=== PATIENT | female | born 1960 | race Caucasian/White ===

== ENCOUNTER → 2024-07-13 | Outpatient (CLI) | payer MEDICARE, BC ==
[2024-07-13 15:10] VITALS: BP 158/87; PULSE 53; RESP 18; TEMP 97.9
--- NOTE | 2024-07-13 17:36 | P.SLEEP ---
History of Present Illness DATE: 07/13/2024 CONSULTATION/NEW PATIENT EVALUATION HISTORY OF PRESENT ILLNESS/SLEEP-WAKE EVALUATION: 63-year-old lady had been evaluated in the sleep center for possible obstructive sleep apnea hypopnea syndrome. Patient has history of obstructive sleep apnea for 5 years, diagnosed in another institution. Patient needs CPAP supplies. SLEEP SCHEDULE: Usually sleep schedule 10 PM2 AM until 69 AM 7 days a week. FALLING ASLEEP: No problems with falling asleep. DURING SLEEP: No snoring with CPAP. Awakenings from sleep 1 time while using CPAP. No history of hypnogogical hallucinations, sleep paralysis, or cataplexy. DURING THE DAY/WAKE STATE: Sometimes patient may feel some sleepiness during the day. [place] sleepiness scale is 3. Patient does not take naps. PAST MEDICAL HISTORY: Coronary artery disease, heart attack, hypertension, acid reflux. PAST SURGICAL HISTORY: Heart catheterization. MEDICATIONS: Please see below. SOCIAL HISTORY: Please see below. FAMILY HISTORY: Epilepsy, stroke, fibromyalgia, cancer, thyroid problems, diabetes. REVIEW OF SYSTEMS: No fevers. No double vision. No recent chest pain. No shortness of breath. No abdominal pain. No bleeding episodes. No blood in urine. No seizure episodes. PHYSICAL EXAMINATION: GENERAL: A pleasant patient without any distress. VITAL SIGNS: Please see below. HEENT: PERRLA, EOMI. Evaluation of oropharynx showed tongue protrudes midline, low position of soft palate Mallampati 34. NECK: Supple. No JVD. Thyroid is not palpable. 15-3/4 inches in circumference. LUNGS: Clear to percussion and to auscultation. Good air exchange. No wheezing or rhonchi. HEART: S1, S2 regular. No murmurs, gallops or rubs. ABDOMEN: Soft and nontender. Bowel sounds are present. No organomegaly appreciated. Obese EXTREMITIES: No clubbing or cyanosis. JAILKEEPER: Awake, alert, and oriented x3. Cranial nerves 2 to 7 intact. There is no fasciculation or atrophy noted. No focal deficits observed. ASSESSMENT: 1. Obstructive sleep apnea hypopnea syndrome for 5 years. Patient continued to use your CPAP equipment, needs CPAP supplies. Last sleep study was done in another institution 5 years ago. Low position of soft palate Mallampati 34. Obstructive sleep apnea hypopnea syndrome. 2. Obesity, BMI 41.4. 3. Coronary artery disease, status post GA. 4. Hypertension. 5 acid reflux. PLAN: 1. Polysomnography for evaluation of patient's breathing during sleep at the present time. 2. Patient should continue to use his CPAP equipment every night for the whole night. 3. Preferable position during sleep on the side. 4. No driving if patient feels any sleepiness. Patient is aware of civil and criminal liability for unsafe driving. 5. Sleep hygiene with regular sleep time for at least 7.5-8 hours. 6. Watching and losing weight. Thank you very much for referring this patient for consultation. Sincerely, Renan Clarke MD, PhD, FAASM. Diplomat of [employer], Sleep Medicine Board by [employer] Computer T[employer] Librarian of [facility] [place] cc: Kristy Mcfarlane DO Past Medical History Past Medical History: GERD/Reflux, Hypertension, Myocardial Infarction (GA), Sleep Apnea/CPAP/BIPAP Additional Past Medical History / Comment(s): GA in 2016, snoring, Last Myocardial Infarction Date:: 2016 History of Any Multi-Drug Resistant Organisms: None Reported Additional Past Surgical History / Comment(s): Heart cath, going to get a pacemaker in 2023. Past Psychological History: Anxiety Additional Psychological History / Comment(s): Anxiety when my was dying. Smoking Status: Never smoker Past Alcohol Use History: Occasional Past Drug Use History: None Reported - Past Family History Mother Family Medical History: Fibromyalgia, GERD/Reflux, Hyperlipidemia Additional Family Medical History / Comment(s): Kidney issues, arthritis, (Moms father had a stroke), brother - epilepsy, brother passed in sleep - think from his Epilepsy) Father Family Medical History: Diabetes Mellitus Additional Family Medical History / Comment(s): Lung cancer, snored, GA, triple bypass, Medications and Allergies Home Medications Medication Instructions Recorded Confirmed Type Aspirin [Adult Low Dose Aspirin EC] 81 mg PO DAILY 07/13/24 07/13/24 History Losartan [Cozaar] 07/13/24 History Physical Exam Vitals: Vital Signs Temp Pulse Resp BP Pulse Ox 07/13/24 15:09 97.9 F 53 L 18 158/87 96 Intake and Output 07/13/24 07/13/24 07/13/24 06:59 14:59 22:59 Other: Weight 111.811 kg Sleep Note - Sleep Data ESS Total: 3 - Sleep Note Sleep Note: Temperature: 97.9 F Pulse Rate: 53 Respiratory Rate: 18 Blood Pressure: 158/87 SpO2: 96 Height: 5 ft 4.7 in Weight: 111.811 kg BMI: Neck Circumference: 15.7
== END ==
LOC: 3 N SLEEP 14:51
PROVIDERS: ATTEND Internal Medicine
CPT/HCPCS: 99211

== ENCOUNTER 2024-08-17 19:43 | Outpatient (CLI) | payer MEDICARE, BC ==
--- NOTE | 2024-09-01 10:46 | P.PCN ---
Description of Procedure: POLYSOMNOGRAPHY REPORT PROCEDURE(S)/DATE(S): Polysomnography 08/17/2024 CLINICAL: Patient has been seen in the sleep center for evaluation of obstructive sleep apnea-hypopnea syndrome. Please see my consultation. Sleep study has been done for evaluation of patient breathing during the sleep. PROCEDURE: The standard montage for clinical polysomnography included the electroencephalogram, the electrooculogram, the mentalis surface electromyography and Lead II cardiography. The respiratory battery consisted of measurements of nasal/buccal air flow, pressure transducer measurements from nose, thoracic and/or abdominal effort and intercostal surface electromyography. Video monitoring has been done to check for any parasomnia events. Nocturnal oxyhemoglobin saturations were obtained by finger oximetry. Step-becerra titration with positive airway pressure was utilized to control the respiratory events, if necessary. RESULTS: During the diagnostic sleep study sleep efficiency was slightly decreased to 81.4%. Latency to sleep onset was significantly prolonged to 37.0 min. Sleep architecture showed stage NI was extremely high 59.3%, Delta sleep was absent 0%, REM sleep was extremely short 3.6%. Respiratory channel showed 2 obstructive apneas, 0 mixed apneas, 0 central apneas, 14 hypopneas with lowest oxygen level 87%. Total apnea hypopnea index was 2.9. Heart rate was in the range between 37 and 52, average 42. EMG showed 20.7 periodic limb movements per hour with 2.7 micro-arousals per hour. IMPRESSIONS: 1. No significant respiratory abnormalities have been documented during the sleep study, normal oxygenation during sleep. 2. Significant periodic limb movements have been documented. Please see other impressions from consultation PLAN: 1. The patient will have PAP titration for correction of respiratory abnormalities during the sleep. 2. Losing weight program. 3. Sleep hygiene with regular time in bed for at least 7-1/2 hours. 4. No driving if feeling sleepiness. 5. Please check iron profile including ferritin level. Low level of iron may increase the risk for periodic limb movements. 6. I will see patient for follow-up visit to explain results of the test and recommendations. Thank you very much for allowing me to participate in the management of your patient. Sincerely, Renan Clarke MD, PhD, FAASM. Diplomat of [employer], Sleep Medicine Board by [employer] Clinical Applications Manager of [facility] [place] cc: Kristy Mcfarlane DO
== END 2024-08-18 05:15 | disposition home or self-care (01) ==
LOC: 3 N SLEEP 19:43
PROVIDERS: ATTEND Internal Medicine
DX: G47.33 Obstructive sleep apnea (adult) (pediatric) (principal); G47.61 Periodic limb movement disorder
CPT/HCPCS: 95810